=== PATIENT | male | born 1950 | race Caucasian/White ===

== ENCOUNTER → 2017-08-08 | Outpatient (CLI) | payer MEDICARE ==
[~2017-08-08] MED LIST: CENTRUM SILVER1 EAC3 PO; CRESTOR10 MG PO; DEXILANT60 MG; FINASTERIDE5 MG PO; FISH OIL 1,2001 EACH PO; FLOMAX0.4 MG PO; GLIMEPIRIDE1 MG PO; MULTIVITAMIN; PREVACID PO; TESSALON PERLE100 MG PO; Vitamin D 3 PO; [UNRECOGNIZED DRUG - OTHER] PO
--- NOTE | 2017-08-08 13:43 | Diagnostic Imaging Report ---
PROCEDURE: Frontal and lateral views of the chest. COMPARISON: None. INDICATIONS: COUGH, CONGESTION FINDINGS: Lines/tubes: None. Lungs: The lungs are well inflated and clear. There is no evidence of pneumonia or pulmonary edema. Biapical scaring. Pleura: There is no pleural effusion or pneumothorax. Heart and mediastinum: The heart and the mediastinum are normal. Bones: No acute bony abnormality. IMPRESSION: 1. No acute cardiopulmonary disease. Dictated by: Ken Olea M.D. on 08/08/2017 at 13:45 Electronically approved by: Ken Olea M.D. on 08/08/2017 at 13:45
== END ==
LOC: RAD 12:17
DX: J20.9 Acute bronchitis, unspecified (principal)
CPT/HCPCS: 71046